=== PATIENT | female | born 2000 | race Caucasian/White ===

== ENCOUNTER 2023-04-13 06:13 | Emergency (ER) | payer BC, SELFPAY ==
[2023-04-13 06:26] VITALS: BP 112/76; PULSE 81; RESP 18; TEMP 36.8; O2SAT 98; BMI 24.3
--- NOTE | 2023-04-13 06:35 | ED_ITS ---
HPI - Eye Problem General Chief complaint: Eye Problems Stated complaint: Eye infection Time Seen by Provider: 04/13/23 06:34 Source: patient, RN notes reviewed and old records reviewed Mode of arrival: ambulatory History of Present Illness HPI Narrative: 22-year-old female with no significant past medical history presenting to the ED complaining of left eye erythema, pain described as burning since yesterday. Admits to suspected conjunctivitis to eye few days ago, was doing computer screen eyes night we noted sharp/burning pain. Also reports mild blurry vision to affected eye. Denies known injury/trauma, fall, foreign body sensation, nausea/vomiting. Denies wearing glasses or contacts. MD chief complaint: eye redness and vision change Related Data Previous Rx's Medication Instructions Recorded erythromycin 5 mg/gram (0.5 %) eye 0.5 inch ophthalmic (eye) QID 7 04/13/23 ointment days #3.5 grams Allergies Allergy/AdvReac Type Severity Reaction Status Date / Time cephalexin [From Keflex] AdvReac Rash Verified 04/13/23 06:26 Review of Systems Review of Systems: Constitutional: No Fever, No Chills, No Fatigue, No Malaise ENT/Mouth: No Hearing loss, No Ear Pain, No Nasal Congestion Eyes:+ Eye Pain, No Swelling, +Redness, No Foreign Body, No Discharge,+Vision Changes Cardiovascular: No Chest Pain, No SOB Respiratory: No Cough, No Sputum, No Dyspnea Gastrointestinal: No Nausea, No Vomiting, No Diarrhea, No Constipation, No Abdominal pain Musculoskeletal: No joint pain, No Myalgias, No Joint Swelling Skin: No Skin Lesions, No rash Neuro: No Weakness,No Loss of Consciousness, No Dizziness, No Headache Yes all other systems are reviewed and are negative Constitutional: Constitutional: Reports as per [facility] Past Medical History Attestation statement: The following information was validated with the patient. Source: old records reviewed Social History Social History Advance Directives: No Advance Directives Information Provided: No Physical Exam Vital Signs: Vital Signs: Last Vital Signs Temp 98.3 F 04/13/23 06:26 Pulse 81 04/13/23 06:26 Resp 18 04/13/23 06:26 BP 112/76 04/13/23 06:26 Pulse Ox 98 04/13/23 06:26 BMI result Body Mass Index 24.3 Const: General: cooperative, healthy appearing and no acute distress Orientation/consciousness: patient oriented x3 Limitations: no limitations HEENT: Head: Yes normal to inspection and Yes atraumatic Ears: hearing grossly normal bilaterally General nose exam: Normal external nose present Face and sinus: Yes normal facial exam Eyes: Other: visual acuity 20/15 bilaterally, 20/15 right, 20/20 left General: appearance normal, both eyes and all related structures Ali gnment and Position: alignment normal Periorbital: periorbital findings normal Eyelids: Yes eyelids normal Conjunctivae: conjunctival abnormal left conjunctival injection diffuse and subconjunctival hemorrhage (@10 o'clock position) Pupils: Equal, round and reactive pupils present EOM: EOMs intact bilaterally and no movement deficit Direct Ophthalmoscopy: no photophobia Neck: Neck: Yes normal visual inspection and Yes no meningeal signs Resp: Effort & Inspection: normal respiratory effort and no respiratory distr ess Cardio: Rate: regular rate Skin: Rashes: no rashes Wounds: no wounds Neuro: General: patient oriented x3, tone normal and no meningeal signs Cranial nerves: Yes CN's II-XII intact bilaterally and Yes Equal, round and reactive pupils present Gait exam (Neuro): Normal gait present Extrem: General: Yes normal to inspection Medications Administered Discontinued Medications Generic Name Dose Route Start Last Admin Trade Name Freq PRN Reason Stop Dose Admin Fluorescein Sodium 1 strip 04/13/23 06:37 04/13/23 06:52 Fluorescein Sodium Strip EYE-LEFT 04/13/23 06:38 1 strip ONCE ONE Administration Tetracaine HCl 2 drop 04/13/23 06:35 04/13/23 06:52 Tetracaine Hcl/Pf 0.5% Oph T[place] 4 Ml Drops EYE-LEFT 04/13/23 06:36 2 drop ONCE ONE Administration Medical Decision Making Medical Decision Making MDM Narrative: 22-year-old female with no significant past medical history presenting to the ED complaining of left eye erythema, pain described as burning since yesterday. On exam vital signs stable, NAD, nontoxic appearing, left eye with diffuse conjunctival injection and subconjunctival hemorrhage noted at 10:00 o'clock position. EOMs intact without entrapment. PERRLA, periorbital findings WNL. Concern for subconjunctival hemorrhage vs iritis vs blepharitis. Low suspicion for corneal abrasion/ulceration, no evidence of globe rupture, periorbital or orbital cellulitis Plan: Visual acuity, IOP, erythromycin antibiotic ointment, ophthalmology follow-up Please refer to course for remaining clinical decision making, interpretation of labs/imaging results, and discussions with consultants and/or family members. Differential Diagnosis Differential Diagnoses: The differential diagnosis associated with the presentation includes As above Consult Healthcare Provider ED attending Dr. Tripp External Record Review External record reviewed: Inpatient record, Office record, Outpatient record, Prior outpatient labs, Prior outpatient radiology, Primary care record and Outside ED record Tests considered The following testing was considered but not selected: As above Prescription Management I considered prescription management with: Pain Medication and Antibiotic Discharge Plan Discharge Clinical Impression: Subconjunctival hemorrhage, Acute iritis Patient Disposition: Home, Self-Care Instructions: Iritis (ED), Subconjunctival Hemorrhage (ED) Additional Instructions: Please follow-up with Ophthalmology, call tomorrow to make an appointment Use erythromycin topical antibiotic ointment as prescribed If symptoms persist or worsen, vision loss, persistent or worsening pain, nausea or vomiting return to the ED Prescriptions: New erythromycin 5 mg/gram (0.5 %) ointment 0.5 inch ophthalmic (eye) QID 7 Days Qty: 3.5 0RF Referrals: Naveen Valdez [Physician] - 2 days
[2023-04-13] MEDS: Fluorescein Sodium STRIP 1 STRIP EYE-LEFT (06:52)
[2023-04-13] MEDS: Tetracaine HCl/PF 0.5% Oph Sol 4 ML DROPS 2 DROP EYE-LEFT (06:52)
== END 2023-04-13 07:37 | disposition home or self-care (01) ==
PROVIDERS: Emergency Provider Student in an Organized Health Care Education/Training Program
DX: H11.32 Conjunctival hemorrhage, left eye (principal); H20.012 Primary iridocyclitis, left eye
CPT/HCPCS: 99283; 99284